=== PATIENT | female | born 1990 | race Caucasian/White ===

== ENCOUNTER 2020-11-17 16:23 | Emergency (ER) | payer OTHER ==
[~2020-11-17] VITALS: Ht 167.6 cm; Wt 68.2 kg
[2020-11-17 16:39] VITALS: TEMP 98.6
[2020-11-17 18:05] VITALS: BP 126/81; PULSE 88
== END 2020-11-17 18:05 | disposition home or self-care (01) ==
LOC: COL.ER 16:23
DX: F41.9 Anxiety disorder, unspecified (principal)

== ENCOUNTER 2020-11-20 16:00 | Day surgery (SDC) | payer OTHER ==
[2020-11-20] VITALS (8 sets, daily range): BP systolic 90–113; BP diastolic 55–71; PULSE 66–72; TEMP 98
--- NOTE | 2020-11-20 15:50 | NUR ---
Pt has arrived from [facility] via EMS. She is very lethargic. She did answer me when I asked if she wanted to lay down, which she responded "No". I then asked if I could take off her shoes, and she stated "no". She then swayed and fell back in a laying position. I was able to take her shoes off, fluids switched to pump tubing. O2 100% on room air. Orders entered
--- NOTE | 2020-11-20 16:30 | NUR ---
Pt off the floor for surgery.
[2020-11-20] MEDS ORDERED: PYRIDIUM 100MG100 MG PO (17:03)
--- NOTE | 2020-11-20 18:07 | NUR ---
Pt arrived back from surgery. She is still very sleepy, but is able to open her eyes for a brief moment before going back to sleep. VSS, bed alarm on
--- NOTE | 2020-11-20 18:34 | NUR ---
Pt continues to be very sleepy from surgery. I was able to wake her and ask if she felt okay, she nodded yes, repositioned and then went back to sleep
--- NOTE | 2020-11-20 19:40 | NUR ---
Pt. sitting up in bed at this time. Pt. is a&OX3, assessment complete. IV to rt. wrist patent. Pt. up to bathroom with standby assist. Pt. report pain to flank. Will give pain meds per orders.
--- NOTE | 2020-11-20 20:10 | NUR ---
Pt. has met discharge criteria. Reviewed discharge paperwork with the pt. Pt. voices understanding. Reviewed scripts that were sent to the pharmacy. Pt. voices understanding. INT discontinued from rt. wrist. Pt. getting dressed and will call when her ride arrives.
--- NOTE | 2020-11-20 21:30 | NUR ---
Pt.'s ride has arrived. Escorted out by REGI Andre.
== END 2020-11-20 21:30 | disposition home or self-care (01) ==
LOC: SURG 16:00 → SDCO 16:00 → SURG 21:30 → SDCO 21:30
DX: N20.1 Calculus of ureter (principal); F11.11 Opioid abuse, in remission
CPT/HCPCS: C1769; G0379; J1100; J1885; J2405; J2704; Q9967

== ENCOUNTER 2021-04-16 12:50 | Day surgery (SDC) | payer OTHER ==
[2021-04-16] VITALS (8 sets, daily range): BP systolic 122–136; BP diastolic 58–90; PULSE 78–110; TEMP 97.4–98
[~2021-04-16] VITALS: Ht 152.4 cm; Wt 145.0 kg
[~2021-04-16 12:50] MED LIST: PYRIDIUM 100MG100 MG PO
[2021-04-16] MEDS ORDERED: ZOLOFT 100MG100 MG PO (13:11)
[2021-04-16] MEDS ORDERED: WELLBUTRIN XL300 M1 PO (13:11)
[2021-04-16] MEDS ORDERED: HARVONI PO (13:12)
[2021-04-16] MEDS ORDERED: ADDERALL30 MG PO (13:13)
[2021-04-16] MEDS ORDERED: NEURONTIN300 MG/CAP PO (13:13)
[2021-04-16] MEDS ORDERED: ADDERALL7.5 MG PO (13:13)
[2021-04-16] MEDS ORDERED: TYLENOL 500MG500 MG PO (13:14)
[2021-04-16] MEDS ORDERED: MOTRIN 800800 MG/TAB PO (13:14)
[2021-04-16] MEDS ORDERED: CALCIUM CITRAT200 M2 PO (13:15)
[2021-04-16] MEDS ORDERED: [UNRECOGNIZED DRUG - CODE] SL (13:16)
--- NOTE | 2021-04-16 13:40 | NUR ---
DURING ADMISSION ASSESSMENT- PATIENT DROWSY AND AT ONE TIME FELL ASLEEP IN THE MIDDLE OF QUESTION. PATIENT COMPLAINS OF BACK PAIN WHEN AWAKE, BUT EASILY FALLS BACK TO SLEEP. CURRENTLY SLEEPING QUIELTY
--- NOTE | 2021-04-16 14:27 | NUR ---
PATIENT SLEEPING QUIETLY.
--- NOTE | 2021-04-16 14:40 | NUR ---
PATIENT SCOOTED HERSELF OUT THE END OF THE BED. PATIENT TO DOORWAY AND ASK TO GO TO THE BATHROOM. AMBULATED TO BATHROOM AND AMBULATED BACK TO BED. AFTER GETTING BACK TO BED C/O EXTREME PAIN AND NAUSEA. CALLED Parker BEASLEY CRNA AND HE ORDERED FENTANYL AND ZOFRAN IF NEEDED.
--- NOTE | 2021-04-16 15:08 | NUR ---
CHECKED ON PATIENT AND PATIENT SLEEPING SOUNDLY. CALL LIGHT IN REACH
--- NOTE | 2021-04-16 16:38 | NUR ---
PATIENT USED CALL LIGHT AND ASK FOR PAIN MEDICATION. PATIENT MORE AWAKE AND NOT DROWSY LOOKING. C/O 03/31 - RECIEVED FENTANYL 50MCG AND STATED PAIN IS BETTER 12/30.
--- NOTE | 2021-04-16 16:58 | NUR ---
C.STORMS INTO TALK WITH PATIENT
[2021-04-16] MEDS ORDERED: PERCOCET 325 MG1 TA2 PO (18:02)
--- NOTE | 2021-04-16 19:00 | NUR ---
Report received, assumed care for shift stacker. Assessment complete. A&Ox3. Denies pain/nasuea/shortness of breath. Plan of care discussed for meeting discharge criteria-tolerating PO, voiding and pain contolled. Verbalizes understanding. Dinner tray ordered-post op vitals in progress. Instructed to call for needs. Verbalizes understanding/denies needs. Call light in reach. Will monitor.
--- NOTE | 2021-04-16 21:00 | NUR ---
Discharge criteria met-tolerating PO, voiding, denies pain/nausea/shortness of breath and VS remain stable. Dr Rogers notified of need for take home pain medications due to pharmacy being closed. New orders received and initiated. INT to left AC DCd cath intact. Discharge instructions given both verbal and handwritten. Denies questions/concerns. Percocet home pack provided with instruction on use. Escorted off floor by this nurse in wheelchair-spouse at ED for pickup.
== END 2021-04-16 21:30 | disposition home or self-care (01) ==
LOC: SDCO 12:50 → SURG 18:34 → SDCO 21:30
DX: N20.1 Calculus of ureter (principal); F32.9 Major depressive disorder, single episode, unspecified; F41.9 Anxiety disorder, unspecified; K75.9 Inflammatory liver disease, unspecified; Z79.899 Other long term (current) drug therapy
CPT/HCPCS: OP; C1769; C2617; J3010; J7120; Q9967